=== PATIENT | male | born 1950 | race Two or more races ===

== ENCOUNTER 2022-02-03 07:21 | Outpatient (CLI) | payer OTHER | END 2022-02-03 07:30 | disposition home or self-care (01) | LOC: NUCLEAR 07:21 | PROVIDERS: ATTEND Specialist | DX: I11.0 Hypertensive heart disease with heart failure (principal); I50.20 Unspecified systolic (congestive) heart failure; I25.10 Atherosclerotic heart disease of native coronary artery without angina pectoris ==